=== PATIENT | male | born 1975 ===

== ENCOUNTER 2017-07-27 13:11 | Emergency (ER) | payer OTHER ==
[2017-07-27 13:31] VITALS: BP 113/74; PULSE 86; RESP 19; TEMP 97; O2SAT 97
[2017-07-27] MEDS ORDERED: Naproxen 500 MG TAB PO ONE ×2 (13:38→14:00)
--- NOTE | 2017-07-27 14:09 | RAD ---
PROCEDURE: Left Knee Radiographs. HISTORY: Pain. COMPARISON: None. FINDINGS: BONES: No acute fracture. JOINTS: Unremarkable. JOINT EFFUSION: None. OTHER FINDINGS: None. IMPRESSION: No demonstrated fracture or dislocation.
--- NOTE | 2017-07-27 14:15 | ED PDOC ---
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 ) History/Exam Limitations: no limitations Onset/Duration Of Symptoms: Days (2 weeks) Current Symptoms Are (Timing): Still Present Additional Complaint(s): 42 year old male presents to the emergency department with 2 weeks of worsening atraumatic left knee pain (greatest in the inner portion of the knee). Reports pain worsens with flexion of the knee. Denies trauma (contrary to the triage note), numbness or tingling. <Hiram Benoit E - Last Filed: 07/27/17 15:46> <Je Hatch - Last Filed: 07/27/17 16:22> Time Seen by Provider: 07/27/17 13:32 Chief Complaint (Nursing): Lower Extremity Problem/Injury Supervising Attending Note - Supervising Attending Note The Documented history was done by the: Physician Correspondence [employer] Teacher The documented physical exam was done by the: Physician Correspondence School Teacher The documented procedures were done by the: Physician Correspondence School Teacher - Attestation: I have personally seen and examined this patient.: No I have fully participated in the care of the patient.: No I have reviewed all pertinent clinical information, including history, physical exam and plan: Yes <Je Hatch - Last Filed: 07/27/17 16:22> Past Medical History Reviewed: Historical Data, Nursing Documentation, Vital Signs Vital Signs: Last Vital Signs Temp 97 F L 07/27/17 13:26 Pulse 86 07/27/17 13:26 Resp 19 07/27/17 13:26 BP 113/74 07/27/17 13:26 Pulse Ox 97 07/27/17 13:26 - Medical History PMH: No Chronic Diseases - Surgical History Surgical History: No Surg Hx - Family History Family History: States: Unknown Family Hx - Living Arrangements Living Arrangements: With Family - Social History Current smoker - smoking cessation education provided: No Alcohol: None Drugs: Denies <Hiram Benoit - Last Filed: 07/27/17 15:46> Vital Signs: Last Vital Signs Temp 97 F L 07/27/17 13:26 Pulse 86 07/27/17 13:26 Resp 19 07/27/17 13:26 BP 113/74 07/27/17 13:26 Pulse Ox 97 07/27/17 15:47 <Je Hatch Licha - Last Filed: 07/27/17 16:22> - Home Medications Home Medications: Ambulatory Orders Medication Instructions Recorded Naproxen [Naprosyn] 500 mg PO BID PRN #20 tab 07/27/17 - Allergies Allergies/Adverse Reactions: Allergies Allergy/AdvReac Type Severity Reaction Status Date / Time No Known Allergies Allergy Verified 07/27/17 13:38 Review of Systems ROS Statement: Except As Marked, All Systems Reviewed And Found Negative (As per HPI, otherwise negative) Constitutional: Negative for: Other (trauma) Musculoskeletal: Positive for: Other (Left knee pain) Neurological: Negative for: Numbness (tingling) <Hiram Benoit - Last Filed: 07/27/17 15:46> Physical Exam - Reviewed Nursing Documentation Reviewed: Yes Vital Signs Reviewed: Yes (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 Positive crepitus to the left knee. ), Capillary Refill (DP pulses 2+ . ). Negative for: Tenderness, Deformity, Other (warmth or erythema) Neurologic/Psych: Positive for: Alert, Oriented (x3) <Hiram Benoit - Last Filed: 07/27/17 15:46> - ECG O2 Sat by Pulse Oximetry: 97 (RA) Pulse Ox Interpretation: Normal - Radiology X-Ray: Interpreted by Me (Knee x-ray) X-Ray Interpretation: No Acute Disease - Progress ED Course And Treament: Knee immobilized in immobilizer applied by epitaxial reactor technician and provided crutches along with crutch walking instructions. <Hiram Benoit - Last Filed: 07/27/17 15:46> Medical Decision Making Medical Decision Making: Time: 1338 Initial impression: Left knee pain Initial plan: Naproxen 500 mg PO Left knee x-ray Reevaluation Time: 1407 Left knee x-ray FINDINGS: BONES: No acute fracture. JOINTS: Unremarkable. JOINT EFFUSION: None. OTHER FINDINGS: None. IMPRESSION: No demonstrated fracture or dislocation. Maintain Knee immobilizer CRUTCHEs routine Time: 1410 Patient is medically clear for discharge and given Rx for Naproxen 500 mg. Advised to follow up with Dr. Kendrick Borjas MD. Clinical Impression: Knee pain Scribe Attestation: Documented by Dayna Bedoya, acting as a scribe for Hiram Benoit PA-C. Provider Scribe Attestation: All medical record entries made by the Scribe were at my direction and personally dictated by me. I have reviewed the chart and agree that the record accurately reflects my personal performance of the history, physical exam, medical decision making, and the department course for this patient. I have also personally directed, reviewed, and agree with the discharge instructions and disposition. <Hiram Benoit - Last Filed: 07/27/17 15:46> Disposition - Patient ED Disposition Is Patient to be Admitted: No Counseled Patient/Family Regarding: Studies Performed, Diagnosis, Need For Followup, Rx Given - Disposition Disposition: Routine/Home Disposition Time: 14:10 <Hiram Benoit - Last Filed: 07/27/17 15:46> <Je Hatch - Last Filed: 07/27/17 16:22> - Clinical Impression Clinical Impression: Knee pain - Disposition Referrals: [facility] [Outside] Kendrick Borjas III, MD [Staff Provider] - Condition: STABLE Additional Instructions: Follow up with orthopedist for further evaluation. Return to ED immediately if symptoms worsen. Prescriptions: Naproxen [Naprosyn] 500 mg PO BID PRN #20 tab PRN Reason: Pain Instructions: Knee Pain (DC) Forms: [facility] ([place]), [facility] ED School/Work Excuse
== END 2017-07-27 15:10 | disposition home or self-care (01) ==
LOC: SUPCPDRO 13:11 → H.ER 13:11
DX: M25.562 Pain in left knee (principal)